=== PATIENT | female | born 1980 | race African-American/Black ===

== ENCOUNTER 2018-02-28 20:42 | Emergency (ER) | payer OTHER ==
[~2018-02-28] VITALS: Ht 167.6 cm; Wt 102.3 kg
[~2018-02-28 20:42] MED LIST: ADV250 IH; ALBU17AE27 IH
[2018-02-28] MEDS ORDERED: AUD NEB (20:56)
[2018-02-28] MEDS ORDERED: IPRATROPIUM BROMIDE 0.5 MG/2.5 ML NEB SOLUTION NEB ONE ×2 (21:00→22:45)
[2018-02-28] MEDS ORDERED: ALBUTEROL SULFATE 5 MG/ML 20 ML NEB SOLN [BULK] NEB ONE ×2 (21:00→22:45)
[2018-02-28] MEDS ORDERED: 0.9% SODIUM CHLORIDE 5 ML NEB SOLUTION NEB ONE (22:40)
[2018-02-28] MEDS ORDERED: PredniSONE 20 MG TABLET PO ONE (23:45)
[2018-03-01 00:35] VITALS: BP 148/88
== END 2018-03-01 00:37 | disposition home or self-care (01) ==
LOC: EMS 20:43
DX: J45.901 Unspecified asthma with (acute) exacerbation (principal); R05 Cough
CPT/HCPCS: 36415; 71045; 84702; 94644; 94645; 99291; J7512; J7611